=== PATIENT | female | born 1995 | race Caucasian/White ===

== ENCOUNTER 2019-02-16 12:25 | Emergency (ER) | payer OTHER ==
--- NOTE | 2019-02-16 12:49 | PDOC ---
History of Present Illness - General Chief Complaint: Abscess Boil Stated Complaint: ABSCESS LEFT GROIN Time Seen by Provider: 02/16/19 12:49 History Source: Patient Exam Limitations: No Limitations - History of Present Illness Initial Comments: 23 yo F history prior skin abscesses presents with painful abscess to the L groin for the past few days. She states that the pain became severe today, and has made it difficult to move her left leg. She has been applying warm compresses at home, which usually helps them to rupture, but it has remained intact this time. Denies fever, chills. Past History - Past Medical History Allergies/Adverse Reactions: Allergies Allergy/AdvReac Type Severity Reaction Status Date / Time sulfamethoxazole Allergy Verified 02/16/19 12:34 [From Bactrim] trimethoprim [From Bactrim] Allergy Verified 02/16/19 12:34 Home Medications: Ambulatory Orders Alprazolam 0.5 mg PO PRN PRN 02/16/19 Clindamycin HCl 300 mg PO Q6H #28 capsule 02/16/19 Escitalopram Oxalate [Lexapro -] 20 mg PO DAILY 02/16/19 Levonorgestrel-Ethin Estradiol [Aviane] 1 each PO DAILY 02/16/19 COPD: No Psychiatric Problems: Yes (JASON) - Suicide/Smoking/Psychosocial Hx Smoking History: Current some day smoker Have you smoked in the past 12 months: Yes Number of Cigarettes Smoked Daily: 8 Information on smoking cessation initiated: Yes Hx Alcohol Use: (occasional) Review of Systems - Review of Systems Able to Perform ROS?: Yes Comments:: GENERAL/CONSTITUTIONAL: No fever or chills. No weakness. MUSCULOSKELETAL: No joint or muscle swelling or pain. No neck or back pain. SKIN: +L groin abscess *Physical Exam - Vital Signs Last Vital Signs Temp Pulse Resp BP Pulse Ox 97.8 F 89 18 138/71 99 02/16/19 12:25 02/16/19 12:25 02/16/19 12:25 02/16/19 12:25 02/16/19 12:25 - Physical Exam Comments: GENERAL: Awake, alert, and fully oriented, in no acute distress HEAD: No signs of trauma EXTREMITIES: Normal range of motion, no edema. No clubbing or cyanosis. NEUROLOGICAL: Cranial nerves II through XII grossly intact. Normal speech, normal gait. Motor and sensation intact SKIN: Warm, Dry, normal turgor. +Erythematous, indurated, fluctuant lesion to the L groin/proximal inner thigh. No active drainage. Procedures - Incision and Drainage I&D Site: Left: Groin Anesthesia: 1% Lidocaine Volume(ml): 5 Blade Size: 11 Attempts: 1 Complications: none Dressing: Yes Progress: 02/16/19 13:22 Area was prepped with alcohol prep, then locally anesthetized with lidocaine 1% . Area of maximum fluctuance was incised with #11 blade with immediate return of malodorous purulent material. Culture was collected. Significant amount of purulent material was expressed. Loculations were broken. Bacitracin and gauze dressing. Patient tolerated well, minimal blood loss. Medical Decision Making - Medical Decision Making 02/16/19 13:24 I&D done, patient tolerated well. Wound culture obtained. Will give abx to cover MRSA, as there is moderate surrounding induration (as well as based on the location). Counseled patient to use warm salt water soaks, dry gauze dressings. She follows up with a dishtank operator. *DC/Admit/Observation/Transfer Diagnosis at time of Disposition: Skin abscess Qualifiers: Site of cutaneous abscess: trunk Site of cutaneous abscess of trunk: groin Qualified Code(s): L02.214 - Cutaneous abscess of groin - Discharge Dispostion Disposition: HOME Condition at time of disposition: Stable Decision to Admit order: No - Prescriptions Prescriptions: Clindamycin HCl 300 mg PO Q6H #28 capsule - Referrals - Patient Instructions Printed Discharge Instructions: DI for Incision and Drainage of a Skin Abscess - Post Discharge Activity
[2019-02-16 12:51] VITALS: BP 138/71; PULSE 89; TEMP 97.8; BMI 26.2
[2019-02-16] MEDS ORDERED: CLINDAMYCIN HCL 300 MG CAPSULE PO ONE (13:28)
[2019-02-16] MEDS ORDERED: CLINDAMYCIN HCL 150 MG CAPSULE (FP) ONE ×2 (13:30→13:33)
== END 2019-02-16 13:45 | disposition home or self-care (01) ==
LOC: FER 12:25
PROC: 0H9AXZZ Drainage of Inguinal Skin, External Approach (ICD-10-PCS; principal; 2019-02-16)
DX: L02.214 Cutaneous abscess of groin (principal)
CPT/HCPCS: 87070; 87077; 87186; 87205; 99284-25

== ENCOUNTER 2020-08-08 11:23 | Emergency (ER) | payer OTHER ==
[2020-08-08 11:49] VITALS: BP 120/68; PULSE 74; TEMP 97.7; BMI 26.4
[2020-08-08] MEDS ORDERED: ACETAMINOPHEN 325 MG TABLET (FP) PO ONE (12:36)
[2020-08-08 12:43] LABS: HEMATOCRIT 40.7 % (32.4-45.2); HEMOGLOBIN 13.4 GM/dl (10.7-15.3); MCH 30.5 pg (25.7-33.7); MEAN CELL VOLUME 92.4 fl (80-96); MEAN PLT VOLUME 8.6 fl (7.5-11.1); PLATELET COUNT 298 K/MM3 (134-434); RDW 12.2 % (11.6-15.6); WHITE BLOOD COUNT 11.8 K/mm3 (4.0-10.8)
[2020-08-08] MEDS ORDERED: ACETAMINOPHEN 325 MG TABLET (FP) ONE (12:45)
[2020-08-08 12:53] LABS: ALBUMIN 3.9 g/dl (3.4-5.0); BILIRUBIN,TOTAL 0.4 mg/dl (0.2-1); CALCIUM 8.8 mg/dl (8.5-10); CREATININE 0.6 mg/dl (0.55-1.3); POTASSIUM 3.7 mmol/L (3.5-5.1); TOT PROT 7.3 g/dl (6.4-8.2)
== END 2020-08-08 13:10 | disposition home or self-care (01) ==
LOC: FER 11:23
DX: L02.214 Cutaneous abscess of groin (principal); L73.2 Hidradenitis suppurativa
CPT/HCPCS: 36415; 80053; 85027; 87040; 87070; 87205; 99283-25

== ENCOUNTER 2024-03-16 19:13 | Emergency (ER) | payer BC, OTHER ==
[2024-03-16 19:30] VITALS: BP 133/72; PULSE 87; RESP 16; TEMP 98.1; BMI 25.0
[2024-03-16] MEDS ORDERED: SUCRALFATE 1 GM/10 ML UNIT DOSE CUPS ONE (19:32)
[2024-03-16] MEDS: SUCRALFATE 1 GM/10 ML UNIT DOSE CUPS PO ONE (19:34)
== END 2024-03-16 19:57 | disposition home or self-care (01) ==
LOC: FER 19:13
DX: R10.13 Epigastric pain (principal); K29.70 Gastritis, unspecified, without bleeding; K29.80 Duodenitis without bleeding
CPT/HCPCS: 81025; 99283-25